=== PATIENT | female | born 1925 ===

== ENCOUNTER 2017-06-26 13:02 | Inpatient (IN) | payer OTHER ==
[~2017-06-26] VITALS: Ht 127 cm; Wt 52.2 kg
[2017-07-02] MEDS ORDERED: CEFADROXIL500 MG PO (08:40)
[2017-07-02] MEDS ORDERED: PERCOCET 5-3251 EACH PO (08:40)
[2017-07-02] MEDS ORDERED: XARELTO10 MG PO (08:40)
== END 2017-07-02 14:19 | DRG 481 ==
LOC: ER 13:02 → SURH 06-27 07:44 → EDBD 06-27 07:44 → SEC-K 06-27 07:44 → O/R 06-27 07:44 → SURH 06-27 20:12
PROVIDERS: Orthopaedic Surgery
PROC: 0QR Lower Bones, Replacement (ICD-10-PCS; 2017-06-27)
PROC: 0QS606Z Reposition Right Upper Femur with Intramedullary Internal Fixation Device, Open Approach (ICD-10-PCS; principal; 2017-06-27 15:00)
PROC: 30233N1 Transfusion of Nonautologous Red Blood Cells into Peripheral Vein, Percutaneous Approach (ICD-10-PCS; 2017-06-29)
DX: S72.141A Displaced intertrochanteric fracture of right femur, initial encounter for closed fracture (principal); D62 Acute posthemorrhagic anemia; W18.39XA Other fall on same level, initial encounter; Y93.89 Activity, other specified; Y92.89 Other specified places as the place of occurrence of the external cause; Y99.8 Other external cause status; M81.0 Age-related osteoporosis without current pathological fracture; G30.0 Alzheimer's disease with early onset; F02.80 Dementia in other diseases classified elsewhere, unspecified severity, without behavioral disturbance, psychotic disturbance, mood disturbance, and anxiety; I10 Essential (primary) hypertension